=== PATIENT | female | born 1960 | race Caucasian/White ===

== ENCOUNTER 2018-12-29 10:15 | Emergency (ER) | payer BC ==
[~2018-12-29] VITALS: Ht 152.4 cm; Wt 58.1 kg
[2018-12-29 10:15] VITALS: BP_SYST 100
--- NOTE | 2018-12-29 10:15 | NUR ---
Patient triaged and placed in waiting room. VSS and patient appears in no acute distress at this time. Accompanied by SELF, awaiting available bed, and MD notified of need for MSE.
--- NOTE | 2018-12-29 12:08 | NUR ---
BROUGHT BACK TO BED #3 AND REPORT GIVEN TO ROSALIE
--- NOTE | 2018-12-29 12:10 | NUR ---
patient arrived Aox4 with c/o feeling ill and back pain x 2 days. patient states this has not happen before. patient lungs are CTA bilaterally. patient is not coughing and without a runny nose. patient have no other symptoms otherwise.
--- NOTE | 2018-12-29 12:34 | NUR ---
JEREMIAH Mc at bedside examining patient. Addendum: 02/06/[email or web address] Figueredo went into another room, not this pt room. No MSE completed at this time.
== END 2018-12-29 13:00 | disposition left against medical advice (07) ==
LOC: SED 10:15
DX: R51 Headache (principal); R07.89 Other chest pain; R50.9 Fever, unspecified; M54.9 Dorsalgia, unspecified; Z53.21 Procedure and treatment not carried out due to patient leaving prior to being seen by health care provider